=== PATIENT | female | born 1995 | race Hispanic/Latino ===

== ENCOUNTER 2021-04-17 12:22 | Emergency (ER) | payer OTHER ==
[~2021-04-17] VITALS: Ht 147.3 cm; Wt 64.2 kg
[2021-04-17 13:35] LABS: BASO % 0.2 % (0.0-1.0); EOS # 0.1 10^3/uL (0.0-0.5); EOS % 0.5 % (0.0-3.0); HEMATOCRIT 38.4 % (36.0-47.0); HEMOGLOBIN 13.1 g/dl (12.0-15.5); LYMPH % 9.3 % (24.0-44.0); MEAN CORPUSCULAR HGB CONC 34.1 g/dl (32.0-36.5); MONO # 0.9 10^3/uL (0.0-0.8); MONO % 8.5 % (2.0-8.0); PLATELET COUNT, AUTOMATED 332 10^3/uL (150-450); RED BLOOD COUNT 4.22 10^6/uL (4.00-5.40); WHITE BLOOD COUNT 11.1 10^3/uL (4.0-10.0)
--- NOTE | 2021-04-17 14:19 | REP ---
INDICATION: flank pain, COMPARISON: None TECHNIQUE: Real time carver scale ultrasound examination using curved array transducer. FINDINGS: Bilateral kidneys are normal in contour, size, echogenicity, and reniform shape. No hydronephrosis, nephrolithiasis, cystic or renal mass lesion. No perinephric fluid collection. Bladder is unremarkable. Right kidney measures 9.6 x 4.8 x 4.5 cm. Left kidney measures 10.1 x 5.3 x 5.8 cm. IMPRESSION: Normal renal ultrasound. <Electronically signed by Jonny Alonso > 04/17/21 [id number]
--- NOTE | 2021-04-17 14:20 | REP ---
INDICATION: abd pain, 6 weeks COMPARISON: None. TECHNIQUE: Transabdominal 1st trimester obstetrical ultrasound with color Doppler evaluation FINDINGS: Single live early intrauterine is appreciated. Gestational sac with yolk sac and pole identified. [place]-rump length of 9 mm corresponds to 6 weeks 6 days gestational age with estimated date of delivery 12/05/2021. heart rate equals 136 beats per minute. No gross abnormalities are identified. Maternal ovaries are normal in appearance and vascularity. IMPRESSION: Single live early intrauterine at 6 weeks 6 days gestational age. Complete anatomical assessment should be performed and 19-20 weeks. <Electronically signed by Jonny Alonso > 04/17/21 [id number]
[2021-04-17 14:32] LABS: BLOOD UREA NITROGEN 5 MG/DL (7-18); CALCIUM LEVEL 9.4 MG/DL (8.5-10.1); CARBON DIOXIDE LEVEL 26 MEQ/L (21-32); CHLORIDE LEVEL 102 MEQ/L (98-107); CREATININE FOR GFR 0.56 MG/DL (0.55-1.30); GLOMERULAR FILTRATION RATE > 60.0 (>60); GLUCOSE, FASTING 82 MG/DL (70-100); HCG, SERUM QUANTITATIVE 89746 MIU/ML; POTASSIUM SERUM 3.9 MEQ/L (3.5-5.1); SODIUM LEVEL 135 MEQ/L (136-145)
[2021-04-17] MEDS ORDERED: PYRI25TA2 PO (14:55)
[2021-04-17] MEDS ORDERED: MACR100C43 PO (14:55)
[2021-04-17] MEDS ORDERED: UNIS25TA3 PO (14:55)
[2021-04-17 14:59] VITALS: BP 109/57
== END 2021-04-17 15:12 | disposition home or self-care (01) ==
LOC: M ED 12:22
DX: O21.0 Mild hyperemesis gravidarum (principal); O23.41 Unspecified infection of urinary tract in pregnancy, first trimester; Z3A.01 Less than 8 weeks gestation of pregnancy

== ENCOUNTER 2021-06-07 11:39 | Emergency (ER) | payer OTHER ==
[~2021-06-07] VITALS: Ht 147.3 cm; Wt 64.5 kg
[~2021-06-07 11:39] MED LIST: MACR100C43 PO; PYRI25TA2 PO; UNIS25TA3 PO
[2021-06-07] MEDS ORDERED: ZOFR4TAB16 PO (11:47)
[2021-06-07] MEDS ORDERED: PRENTAB53 PO (11:47)
[2021-06-07 13:37] LABS: BASO % 0.1 % (0.0-1.0); EOS # 0.1 10^3/uL (0.0-0.5); EOS % 0.7 % (0.0-3.0); HEMATOCRIT 36.2 % (36.0-47.0); HEMOGLOBIN 12.2 g/dl (12.0-15.5); LYMPH # 1.8 10^3/uL (1.5-5.0); LYMPH % 23.5 % (24.0-44.0); MEAN CORPUSCULAR HEMOGLOBIN 30.7 pg (27.0-33.0); MEAN CORPUSCULAR HGB CONC 33.7 g/dl (32.0-36.5); MONO # 0.5 10^3/uL (0.0-0.8); MONO % 6.4 % (2.0-8.0); NEUTROPHILS # 5.3 10^3/uL (1.5-8.5); NEUTROPHILS % 68.9 % (36.0-66.0); PLATELET COUNT, AUTOMATED 302 10^3/uL (150-450); RED BLOOD COUNT 3.98 10^6/uL (4.00-5.40); WHITE BLOOD COUNT 7.7 10^3/uL (4.0-10.0)
[2021-06-07 13:55] LABS: ALBUMIN 3.3 GM/DL (3.2-5.2); ALT/SGPT 22 U/L (12-78); BILIRUBIN,DIRECT < 0.1 MG/DL (0.0-0.2); BILIRUBIN,TOTAL 0.3 MG/DL (0.2-1.0); BLOOD UREA NITROGEN 4 MG/DL (7-18); CALCIUM LEVEL 8.7 MG/DL (8.5-10.1); CARBON DIOXIDE LEVEL 24 MEQ/L (21-32); CHLORIDE LEVEL 106 MEQ/L (98-107); CREATININE FOR GFR 0.47 MG/DL (0.55-1.30); GLOMERULAR FILTRATION RATE > 60.0 (>60); GLUCOSE, FASTING 76 MG/DL (70-100); LIPASE 31 U/L (73-393); POTASSIUM SERUM 4.3 MEQ/L (3.5-5.1); SODIUM LEVEL 133 MEQ/L (136-145)
[2021-06-07] MEDS ORDERED: ACETAMINOPHEN 325 MG TAB PO ONE (14:30)
[2021-06-07] MEDS ORDERED: NS 1,000 ML IV ONE (14:30)
[2021-06-07] MEDS ORDERED: METOCLOPRAMIDE INJ 10MG/2ML VIAL (J2765 PER 1) IV ONE (14:30)
--- NOTE | 2021-06-07 15:55 | REP ---
INDICATION: lower abd pain, 14 weeks , no vag bleding. COMPARISON: None. TECHNIQUE: Transabdominal obstetric sonography. Limited exam. FINDINGS: Scanning demonstrates a single living intrauterine gestation in a free-floating lie. heart rate is recorded at 140 beats per minute. Anterior grade 0 placenta is seen without evidence of previa. No extra uterine abnormality is observed. Closed cervical length is 3.1 cm IMPRESSION: Limited obstetric sonography as above. <Electronically signed by Myles Mcfadden > 06/07/21 1425
[2021-06-07 17:03] VITALS: BP 116/64
[2021-06-07] MEDS ORDERED: CEPH500C PO (18:33)
== END 2021-06-07 17:06 | disposition home or self-care (01) ==
LOC: M ED 11:39
DX: O21.9 Vomiting of pregnancy, unspecified (principal); Z3A.14 14 weeks gestation of pregnancy
CPT/HCPCS: 76815; 80048; 80076; 81001; 83690; 85025; 86901; 96361; 96374; 99284; J2765

== ENCOUNTER 2021-08-20 09:41 | Outpatient (CLI) | payer OTHER ==
[~2021-08-20] VITALS: Ht 147.3 cm; Wt 70.3 kg
[~2021-08-20 09:41] MED LIST changes: +CEPH500C PO; +PRENTAB53 PO; +ZOFR4TAB16 PO
[2021-08-20] MEDS ORDERED: HOME MED LIST COMPLETE! XX SCH (09:55)
[2021-08-20 10:04] VITALS: BP 102/59
[2021-08-20] MEDS ORDERED: ACETAMINOPHEN 500 MG TAB PO ONE (10:45)
[2021-08-20] MEDS ORDERED: ONDANSETRON 4 MG TAB PO ONE (10:45)
[2021-08-20 10:55] LABS: APPEARANCE, URINE HAZY (CLEAR); BACTERIA, URINE AUTO 1+ (NEGATIVE); BILIRUBIN, URINE AUTO NEGATIVE (NEGATIVE); BLOOD, URINE BLOOD NEGATIVE (NEGATIVE); COLOR, URINE YELLOW (YELLOW); GLUCOSE, URINE (UA) AUTO NEGATIVE (NEGATIVE); KETONE, URINE AUTO NEGATIVE (NEGATIVE); LEUKOCYTE ESTERASE, URINE AUTO 1+ (NEGATIVE); NITRITE, URINE AUTO NEGATIVE (NEGATIVE); PROTEIN, URINE AUTO NEGATIVE (NEGATIVE); RBC, URINE AUTO 1 /HPF (0-3); SPECIFIC GRAVITY URINE AUTO 1.005 (1.002-1.035); SQUAMOUS EPITHELIAL CELL UR AU 8 /HPF (0-6); UROBILINOGEN, URINE AUTO 0.2 mg/dL (0.0-2.0); WBC, URINE AUTO 3 /HPF (0-3)
--- NOTE | 2021-08-20 12:38 | IPNPDOC ---
Text Note Date of Service The patient was seen on 08/20/21. NOTE Chief Complaint: Ms. Gimenez is a 25 year old G 2 P 1 at 24+6 weeks gestation presenting to L&D triage for complaints of right flank pain. Patient presents: alone HPI: Reports right intermittent sharp right flank pain for the last 2 days. Reports pain lasts about 2-3 min when it occurs. Happens to low right abdomen and low right back. More pain with leaning on area, walking, and bending. Pain 10/10 when it occurs. States nothing but time makes pain go away. Has not tried tylenol or heat. Denies any dysuria, vaginal discharge, vaginal itching/burning. Denies any leaking of fluid, vaginal bleeding. Reporting good movement. Denies any contractions. Does report some headaches, has hx of migraine MILLAN, not taking daily magnesium oxide. Some slight nausea today and emesis x1. ROS: GEN: Denies fevers, chills. Eyes: Denies change in vision/ scotomata/blurred vision. Card: Denies palpitations or Chest pain. GI: Endorses good appetite. No abdominal pain. Lymph: Denies edema to upper or lower extremities bilaterally. Neuro: Some dizziness. Objective: General: Alert. Well-appearing, in no acute distress PSYCH: Well groomed. Appropriate affect, normal mood. Conversed easily. Neuro: Oriented to time, place, and person. RESP: Lungs clear to auscultation bilaterally without wheezes, rales or rhonchi. Unlabored breathing. CV: Normal RRR, no murmur, c/w normal . splitting of heart sounds noted. No edema to bilateral upper and lower extremities. ABD: Soft. Tenderness over low right abdomen, negative rebound. BS normal x4 quad. No swelling, guarding, mass or lumps noted on palpation. MSK: Negative CVA tenderness bilaterally. Negative tenderness to spinal or supraspinal areas on palpation. Reports percussion feels good on the right side. legs without edema bilaterally. Normal mvmt all extremities. Steady gait. Deonna from a seated position without assistance. Negative symphysis pubis pain on palpation. Obstetrical: FHR Doptones: 135 Rn Mds Coordinator present for exam: Sachi Sloan RN Laboratory Tests 08/20/21 10:13: Urine Color YELLOW, Urine Appearance HAZY, Urine pH 8.0, Urine Specific [place] 1.005, Urine Protein NEGATIVE, Urine Glucose (Auto)(UA) NEGATIVE, Urine Ketones (Auto) NEGATIVE, Urine Blood NEGATIVE, Urine Nitrite NEGATIVE, Urine Bilirubin NEGATIVE, Urine Urobilinogen 0.2, Urine Leukocyte Esterase (Auto) 1+H, Urine WBC (Auto) 3, Urine RBC (Auto) 1, Urine Hyaline Casts (Auto) 0, Urine Bacteria (Auto) 1+H, Urine Squamous Epithelial Cells 8, Urine Sperm (Auto) A/P 25yo at 24+6 wks gestation evaluated in L&D triage for complaints of flank pain. VSS and normal- afebrile Round Ligament Pain & MSK pain of : Benign physical exam with exception of pain over RLQ. Given tylenol and zofran in triage for pain and nausea. RX tylenol for pain. Encouraged warm compress, bath and back massage. Offered flexaril for pain, pt declines. Normal doptones, reassuring status. No contractions noted on monitor. Labs: UA with negative blood, small bacteria and leuk esterase. Will treat for UTI, pending urine culture. Rx macrobid at [place] [facility]. Pt declined additional zofran. Educated on routine OB return precautions and warning signs. Follow up on [facility] as previously scheduled. CHEYENNE MOSCOSO CNM Aug 20, 2021 11:13
== END 2021-08-20 11:10 | disposition home or self-care (01) ==
LOC: M LDO 09:41
PROVIDERS: ATTEND Advanced Practice Midwife
DX: O26.892 Other specified pregnancy related conditions, second trimester (principal); R10.2 Pelvic and perineal pain; Z3A.24 24 weeks gestation of pregnancy; O23.42 Unspecified infection of urinary tract in pregnancy, second trimester
CPT/HCPCS: 59025; 81001; G0378; G0463

== ENCOUNTER 2023-06-06 12:55 | Emergency (ER) | payer OTHER ==
[~2023-06-06] VITALS: Ht 149.9 cm; Wt 71.8 kg
[~2023-06-06 12:55] MED LIST changes: +ACET-907 PO; +COLA100C5 PO; +IBUP80TA PO
[2023-06-06] MEDS ORDERED: NITROFURANTOIN (MACROBID) 100 MG CAP PO ONE (14:25)
[2023-06-06] MEDS ORDERED: NITR1CAP11 PO (14:31)
[2023-06-06 14:37] VITALS: BP 125/80; TEMP 98.2; O2SAT 100
== END 2023-06-06 14:38 | disposition home or self-care (01) ==
LOC: M ED 12:55
DX: N30.00 Acute cystitis without hematuria (principal)